=== PATIENT | male | born 1960 | race Caucasian/White ===

== ENCOUNTER 2021-07-17 16:29 | Observation (INO) ==
[2021-07-17] MEDS ORDERED: IOPAMIDOL 125 ML BOTTLE IV ONE ×2 (16:30→21:23)
[2021-07-17] MEDS ORDERED: ONDANSETRON 4 MG/2 ML VIAL IV ONE (17:29)
[2021-07-17 18:10] LABS: POC Creatinine 1.2 mg/dL (0.6-1.2)
[2021-07-17 18:14] LABS: Hematocrit 38.7 % (40.1-51.0); Hemoglobin 13.6 g/dL (13.7-17.5); Mean Cell Volume 91.3 fL (80.0-100.0); Mean Corpuscular HGB Conc 35.1 g/dL (31.0-36.0); Mean Platelet Volume 11.8 fL (7.4-10.4); Platelet Count 267 K/mcL (140-440); RBC 4.24 M/mcL (4.63-6.08); Red Cell Distribution Width 13.3 % (11.5-14.5)
--- NOTE | 2021-07-17 18:22 | Emergency Department Note ---
Abdominal Pain HPI General Chief Complaint: Abdominal Pain Stated Complaint: ABDOMINAL PAIN Time Seen by Provider: 07/17/21 17:29 Source: patient Mode of arrival: ambulatory Limitations: no limitations History of Present Illness HPI Narrative: This is a 61-year-old male who presents with right lower quadrant abdominal pain since Friday morning (3 days). He states the pain comes and goes, is worse with positional changes and walking. He's had no associated nausea and vomiting. No fevers chills or sweats. He denies right-sided flank pain, dysuria or hematuria. No previous abdominal surgeries. He is a recovering alcoholic with last alcoholic beverage was 1 month ago. Daily smoker. Patient takes apixaban and diltiazem for chronic atrial fibrillation, has a history of hypertension, and COPD on chronic inhalers. Related Data Home Medications Medication Instructions Recorded Confirmed B-complex with vitamin C 1 tab PO QDAY 07/11/20 07/17/21 albuterol sulfate 90 mcg/actuation 1 inh INHALATION Q4H 07/11/20 07/17/21 breath activated powder inhaler,sensor apixaban 5 mg tablet 5 mg PO BID 07/11/20 07/17/21 aspirin 81 mg tablet,delayed 81 mg PO QDAY 07/11/20 07/17/21 release budesonide-formoterol HFA 160 2 puff INHALATION BID 07/11/20 07/17/21 mcg-4.5 mcg/actuation aerosol inhaler bupropion HCl 150 mg tablet,12 hr 150 mg PO QDAY 07/11/20 07/17/21 sustained-release diltiazem HCl 360 mg capsule,24 360 mg PO QDAY 07/11/20 07/17/21 hr,extended release folic acid 1 mg tablet 1 mg PO QDAY 07/11/20 07/17/21 furosemide 40 mg tablet 40 mg PO QDAY 07/11/20 07/17/21 hydroxyzine pamoate 50 mg capsule 50 mg PO QHS 07/11/20 07/17/21 loratadine 10 mg capsule 10 mg PO QDAY 07/11/20 07/17/21 naloxone 4 mg/actuation nasal spray 4 mg INTRANASAL Q2M PRN 07/11/20 07/17/21 naltrexone 50 mg tablet 50 mg PO QDAY 07/11/20 07/17/21 omeprazole magnesium 20 mg 20 mg PO QDAY 07/11/20 07/17/21 capsule,delayed release rosuvastatin 10 mg tablet 10 mg PO QDAY 07/11/20 07/17/21 sildenafil 100 mg tablet 100 mg PO QDAY PRN 07/11/20 07/17/21 sodium 30 mEq-potassium 10 each PO 07/11/20 07/17/21 mEq-chloride 25 mEq-dex 11 gram powder pack thiamine HCl (vitamin B1) 100 mg 100 mg PO QDAY 07/11/20 07/17/21 tablet tiotropium bromide 2.5 2 puff INHALATION QDAY 07/11/20 07/17/21 mcg/actuation mist for inhalation tamsulosin 0.4 mg capsule 0.4 mg PO QDAY 07/17/21 07/17/21 Allergies Allergy/AdvReac Type Severity Reaction Status Date / Time lisinopril Allergy Unknown Unknown Verified 07/17/21 16:31 Review of Systems ROS ROS Narrative: Narrative: All systems ED: reviewed and negative except as stated. [facility] Narrative Patient History Narrative: Narrative: Medical/Surgical/Family History All Active Problems (Updated 07/17/21 @ 19:59 by Jaimee Kiser PA-C) Acute appendicitis (Acute) RLQ abdominal pain (Acute) Community acquired pneumonia (Acute) No pertinent past surgical history (Chronic) COPD (chronic obstructive pulmonary disease) (Chronic) Anxiety disorder (Chronic) PTSD (post-traumatic stress disorder) (Chronic) Hypertension (Chronic) Other intervertebral disc degeneration, lumbar region (Chronic) Radiculopathy, lumbar region (Chronic) Adhesive arachnoiditis (Chronic) Low back pain (Chronic) Chronic pain (Chronic) Spinal stenosis, lumbar region with neurogenic claudication (Chronic) Spondylosis without myelopathy or radiculopathy, lumbar region (Chronic) Medical History Adhesive arachnoiditis Anxiety disorder Chronic pain COPD (chronic obstructive pulmonary disease) Hypertension Low back pain Other intervertebral disc degeneration, lumbar region PTSD (post-traumatic stress disorder) Radiculopathy, lumbar region Spinal stenosis, lumbar region with neurogenic claudication Spondylosis without myelopathy or radiculopathy, lumbar region Surgical History No pertinent past surgical history Family History Other No pertinent family history Social History Smoking Status: Current every day smoker Exam Narrative Narrative: General: AOx3, NAD, nontoxic appearing. Pleasant and conversant. HEENT: PERRL, EOMI, normocephalic. Moist mucous membranes. Normal facies Respiratory: Lungs clear to auscultation bilaterally. No respiratory distress. Unlabored breathing. Heart: Regular rate and rhythm, no murmurs/clicks/rubs. Abdomen: Mild right lower quadrant tenderness with subtle McBurney sign, Non distended, normal bowel tones. No organomegaly. Extremities: Warm and well perfused. No edema. DP 2+ bilaterally. No venous stasis. Neuro: No focal deficits. Cranial nerves II-XII normal. Skin: Warm dry, no rashes or lesions, no cyanosis. Psych: Normal mood and affect Heme/Lymph: No abnormal bruising General Limitations: no limitations Course Course Course Narrative: 61-year-old male presents with 3 days of right lower quadrant pain from his primary care's office with request for CT of the abdomen to rule out appendicitis Reevaluation(s) Reevaluation #1: Obtain basic labs and CT of the abdomen pelvis with/without contrast to rule out appendicitis or kidney stone Obtain UA Obtain EKG Reevaluation #2: EKG shows right bundle branch block and no acute ST changes with borderline prolonged QTC of 483 ms CBC without leukocytosis, CMP without significant electrolyte derangement or endorgan dysfunction CT of the abdomen pelvis shows acute appendicitis without free air or fluid in the abdomen. Start Zosyn. Vital Signs Vital signs: Vital Signs Temperature 97.0 F 07/17/21 16:30 Pulse Rate 86 07/17/21 16:30 Respiratory Rate 16 07/17/21 16:30 Blood Pressure 123/72 07/17/21 16:30 Pulse Oximetry (%) 96 07/17/21 16:30 Temperature 97.0 F 07/17/21 16:30 Pulse Rate 72 07/17/21 19:53 Respiratory Rate 16 07/17/21 16:30 Blood Pressure 123/71 07/17/21 19:53 Pulse Oximetry (%) 96 07/17/21 19:53 [facility] MDM Narrative Medical decision making narrative: Acute appendicitis Chronic anticoagulation for atrial fibrillation I reached out to Dr. Velez who would like patient admitted for IV antibiotics and the plan will be for laparoscopic appendectomy tomorrow. The usual presurgical work-up has been ordered. Patient is pending admission. Hold Eliquis tonight, clear liquids and n.p.o. after midnight. Lab Data Result diagrams: 07/17/21 17:30 07/17/21 17:29 Labs: Lab Results 07/17/21 07/17/21 07/17/21 Range/Units 17:29 17:30 18:02 WBC 11.0 (4.5-11.0) K/mcL RBC 4.24 L (4.63-6.08) M/mcL Hgb 13.6 L (13.7-17.5) g/dL Hct 38.7 L (40.1-51.0) % MCV 91.3 (80.0-100.0) fL MCH 32.1 (26.0-34.0) pg MCHC 35.1 (31.0-36.0) g/dL RDW 13.3 (11.5-14.5) % Plt Count 267 (140-440) K/mcL MPV 11.8 H (7.4-10.4) fL Seg Neutrophils % 65 (38-78) % Lymphocytes % 26 (15-49) % Monocytes % (Manual) 6 (1-12) % Eosinophils % (Manual) 3 (0-7) % Platelet Estimate Normal (Normal) RBC Morphology Normal (Normal) Sodium 137 (133-145) mmol/L Potassium 3.9 (3.3-5.1) mmol/L Chloride 99 (96-108) mmol/L Carbon Dioxide 25 (22-30) mmol/L Anion Gap 13.0 (8.0-16.0) BUN 10 (8-23) mg/dL Creatinine 1.1 (0.7-1.2) mg/dL POC Creatinine 1.2 (0.6-1.2) mg/dL GFR Calculation 71 Glucose 138 H (70-105) mg/dL Calcium 9.4 (8.6-10.4) mg/dL Total Bilirubin 0.4 (0.1-1.0) mg/dL AST 23 (<40) U/L ALT 21 (<40) U/L Alkaline Phosphatase 90 (39-117) U/L Total Protein 6.7 (5.9-8.4) gm/dL Albumin 4.3 (3.2-5.2) gm/dL Globulin 2.4 (2.2-3.7) gm/dL Albumin/Globulin Ratio 1.8 (1.0-2.3) Lipase 18 (7-60) U/L Discharge Plan Patient/Caregiver Discharge Instructions Pt seen by CARD BOXER/PA only: Yes Clinical Impression: Acute appendicitis Patient Disposition: Xfer As Outpt/Obs ([facility]) Condition: Fair Follow up with: Karly Velez ARNP [Primary Care Provider] - Prescriptions: No Action albuterol sulfate 90 mcg/actuation aero powdr breath act w/sensor 1 inh INHALATION Q4H RF: 0 diltiazem HCl 360 mg capsule,extended release 24 hr 360 mg PO QDAY RF: 0 apixaban 5 mg tablet 5 mg PO BID RF: 0 aspirin [Adult Low Dose Aspirin] 81 mg tablet,delayed release (DR/EC) 81 mg PO QDAY RF: 0 budesonide-formoterol 160-4.5 mcg/actuation HFA aerosol inhaler 2 puff INHALATION BID RF: 0 bupropion HCl 150 mg tablet sustained-release 12 hr 150 mg PO QDAY RF: 0 furosemide 40 mg tablet 40 mg PO QDAY RF: 0 hydroxyzine pamoate 50 mg capsule 50 mg PO QHS RF: 0 naloxone 4 mg/actuation spray,non-aerosol 4 mg INTRANASAL Q2M PRNRF: 0 naltrexone 50 mg tablet 50 mg PO QDAY RF: 0 omeprazole magnesium [Acid Machinery Mover (omeprazole)] 20 mg capsule,delayed release(DR/EC) 20 mg PO QDAY RF: 0 nklnrg-cntya-gucmundf-dextrose 30 mEq-10 mEq- 25 mEq-11 gram powder in packet PO RF: 0 rosuvastatin 10 mg tablet 10 mg PO QDAY RF: 0 sildenafil 100 mg tablet 100 mg PO QDAY PRN (Reason: Erectile Dysfunction) RF: 0 thiamine HCl (vitamin B1) 100 mg tablet 100 mg PO QDAY RF: 0 B-complex with vitamin C Tablet 1 tab PO QDAY RF: 0 folic acid 1 mg tablet 1 mg PO QDAY RF: 0 tiotropium bromide 2.5 mcg/actuation mist 2 puff INHALATION QDAY RF: 0 loratadine 10 mg capsule 10 mg PO QDAY RF: 0 tamsulosin 0.4 mg capsule 0.4 mg PO QDAY RF: 0
[2021-07-17 18:33] LABS: ALT/SGPT 21 U/L (<40); AST/SGOT 23 U/L (<40); Albumin 4.3 gm/dL (3.2-5.2); Albumin/Globulin Ratio 1.8 (1.0-2.3); Alkaline Phosphatase 90 U/L (39-117); Bilirubin,Total 0.4 mg/dL (0.1-1.0); Blood Urea Nitrogen 10 mg/dL (8-23); Calcium 9.4 mg/dL (8.6-10.4); Carbon Dioxide 25 mmol/L (22-30); Chloride 99 mmol/L (96-108); Globulin 2.4 gm/dL (2.2-3.7); Glomerular Filtration Rate 71; Glucose 138 mg/dL (70-105)
--- NOTE | 2021-07-17 18:51 | Cat Scan Report ---
History: Right-sided abdominal pain TECHNIQUE: The abdomen was imaged before and after intravenous contrast from the diaphragm through the symphysis pubis. Sagittal and coronal reformats were created. The radiation exposure was limited using dose reduction technology. FINDINGS: The lung bases are clear. The liver is normal in size. There is a 7 mm cyst laterally in segment seven of the right lobe. The liver is otherwise homogeneous. Gallbladder is partially contracted. This may be a physiologic response to the presence of a large amount of ingested material in stomach. There are no gallstones and the bile ducts are nondilated. The spleen, pancreas and adrenals are normal. The kidneys are normal in size shape and contour. There is no kidney stone or hydronephrosis. There is a small arterial calcifications in the hilar region of the left kidney which mimics a stone. Severe atherosclerotic disease is present throughout the abdomen or pelvis. Aorta is normal in caliber. There may be a hemodynamically significant stenoses in the iliac arteries. The appendix is thickened and inflamed. Measures 1.3 cm in transverse diameter. It is oriented vertically in the right upper pelvis, posterior to the ascending colon. There is no abscess or perforation. No ascites or free intra-abdominal air present. Large and small bowel pattern are otherwise normal. The urinary bladder is normal. IMPRESSION: Acute appendicitis Jaimee Kiser was called with report Interpreted and Authenticated by: Wang Watson 07/17/21
[2021-07-17 19:01] LABS: Eosinophils % (Manual) 3 % (0-7); Lymphocytes % 26 % (15-49); Monocytes % (Manual) 6 % (1-12); Platelet Estimate NORMAL (Normal); RBC Morphology NORMAL (Normal); Segmented Neutrophils % 65 % (38-78)
[2021-07-17] MEDS ORDERED: PIPERACILLIN SODIUM/TAZOBACTAM 3.375 GM in DEXTROSE 5% IN WATER 50 ML IV ONE (19:09)
[2021-07-17] MEDS ORDERED: ONDANSETRON 4 MG/2 ML VIAL IV PRN ×2 (20:40→21:23)
[2021-07-17] MEDS ORDERED: HYDROmorphone 1 MG/ML SYRINGE IV PRN ×2 (20:40→21:23)
[2021-07-17] MEDS ORDERED: ZOLPIDEM 5 MG TABLET PO PRN ×2 (20:45→21:23)
[2021-07-17] MEDS ORDERED: 0.9 % SODIUM CHLORIDE 1,000 ML IV SCH (20:45)
[2021-07-17] MEDS ORDERED: SENNOSIDES 1 TABLET PO SCH (21:00)
[2021-07-17] MEDS ORDERED: DOCUSATE SODIUM 100 MG CAPSULE PO SCH (21:00)
[2021-07-17] MEDS ORDERED: hydrOXYzine 25 MG TABLET PO PRN ×2 (21:14→21:23)
[2021-07-17] MEDS ORDERED: MELATONIN 3 MG TABLET PO PRN ×2 (21:19→21:38)
[2021-07-17] MEDS ORDERED: HYDROXYZINE PAMOATE 50 MG PO SCH (21:23)
[2021-07-17] MEDS ORDERED: GABAPENTIN 300 MG PO SCH (21:23)
[2021-07-17 21:42] LABS: INR 1.2 (0.9-1.1); Prothrombin Time 15.4 sec (11.9-14.5)
[2021-07-17] MEDS ORDERED: ALBUTEROL SULFATE 200 PUFF INHALER INH SCH (21:45)
[2021-07-17] MEDS ORDERED: 0.9 % SODIUM CHLORIDE 10 ML SYRINGE IV SCH (22:00)
[2021-07-17 22:53] LABS: Appearance,Urine CLEAR (Clear); Bilirubin,Urine Negative (Negative); Color,Urine YELLOW; Culture Indicated,Urine No; Glucose,Urine (UA) Negative (Negative); Ketones,Urine Negative (Negative); Leukocyte Esterase,Urine Negative /uL (Negative); Nitrate,Urine Negative (Negative); Protein,Urine Negative (Negative); Specific Gravity,Urine 1.049 (1.000-1.035); Urine Blood Negative (Negative); Urine RBC < 1 /hpf (0-3); Urine Squamous Epithelial Cell 0 /hpf (0-4); Urine WBC 1 /hpf (0-4)
[2021-07-17] MEDS: 0.9 % SODIUM CHLORIDE 10 ML SYRINGE IV SCH (23:17)
[2021-07-17] MEDS: buPROPion 150 MG TAB.SR.12H PO SCH ×2 (23:17→23:20)
[2021-07-17] MEDS: 0.9 % SODIUM CHLORIDE 1,000 ML IV SCH (23:17)
[2021-07-18] MEDS: 0.9 % SODIUM CHLORIDE 10 ML SYRINGE IV SCH ×3 (04:00→21:51)
[2021-07-18 07:01] LABS: Basophils # (Auto) 0.08 K/mcL (0.00-0.30); Basophils % (Auto) 1.1 % (0.0-2.0); Eosinophils % (Auto) 5.5 % (0.0-7.0); Hematocrit 38.1 % (40.1-51.0); Lymphocytes # (Auto) 2.13 K/mcL (1.50-4.80); Lymphocytes % (Auto) 29.5 % (15.5-49.0); Mean Cell Volume 93.4 fL (80.0-100.0); Mean Corpuscular HGB Conc 34.1 g/dL (31.0-36.0); Mean Platelet Volume 12.3 fL (7.4-10.4); Monocytes # (Auto) 0.77 K/mcL (0.10-0.90); Monocytes % (Auto) 10.7 % (1.0-12.0); Neutrophils % (Auto) 53.2 % (38.0-78.0); Platelet Count 230 K/mcL (140-440); RBC 4.08 M/mcL (4.63-6.08); Red Cell Distribution Width 13.3 % (11.5-14.5); WBC 7.2 K/mcL (4.5-11.0)
[2021-07-18] MEDS: 0.9 % SODIUM CHLORIDE 1,000 ML IV SCH ×5 (07:01→22:03)
[2021-07-18] MEDS ORDERED: SCOPOLAMINE 1 PATCH PATCH TOPICAL PRN (07:25)
[2021-07-18 07:39] LABS: ALT/SGPT 19 U/L (<40); AST/SGOT 20 U/L (<40); Albumin 3.6 gm/dL (3.2-5.2); Albumin/Globulin Ratio 1.5 (1.0-2.3); Alkaline Phosphatase 80 U/L (39-117); Bilirubin,Direct < 0.2 mg/dL (0-0.3); Bilirubin,Total 0.2 mg/dL (0.1-1.0); Blood Urea Nitrogen 10 mg/dL (8-23); Carbon Dioxide 25 mmol/L (22-30); Chloride 102 mmol/L (96-108); Globulin 2.4 gm/dL (2.2-3.7); Glomerular Filtration Rate 95; Glucose 111 mg/dL (70-105); Lactate Dehydrogenase 147 U/L (135-225); Phosphorous 3.9 mg/dL (2.5-4.5); Triglycerides 59 mg/dL (<150); Uric Acid 5.4 mg/dL (2.5-8.0)
--- NOTE | 2021-07-18 07:43 | General Surg History&Physical ---
HPI History of Present Illness Patient information: Note initiated : 07/18/21 at 7:35 am Service Date, if different from initiated Date: [] Patient: Barry Jefferson 61 y/o M admitted on 07/17/21 for ABDOMINAL PAIN. Chief Complaint: [] History of present illness: Mr. Jefferson is a 61 year old M admitted with acute appendicitis. The patient had onset of aching pain in his right lower quadrant 5 days prior to admission. He had associated bloating. He did not have nausea vomiting. He states that the pain became more intense. He denied fever or chills. He finally presented to the emergency room with these complaints and was noted to have mild tenderness in his right lower quadrant. CT of the abdomen confirmed retrocecal appendicitis. Patient is admitted and will have appendectomy later today. Review of Systems All systems: reviewed and no additional remarkable complaints except as stated Respiratory Respiratory: Present dyspnea on exertion (Moderate dyspnea on exertion) Musculoskeletal Musculoskeletal: Present back pain (Chronic low back pain with sciatica) PFSH PFSH All Active Problems (Updated 07/18/21 @ 07:42 by Jacquie Velez MD) Chronic alcoholism (Acute) Acute appendicitis (Acute) RLQ abdominal pain (Acute) Community acquired pneumonia (Acute) No pertinent past surgical history (Chronic) COPD (chronic obstructive pulmonary disease) (Chronic) Anxiety disorder (Chronic) PTSD (post-traumatic stress disorder) (Chronic) Hypertension (Chronic) Other intervertebral disc degeneration, lumbar region (Chronic) Radiculopathy, lumbar region (Chronic) Adhesive arachnoiditis (Chronic) Low back pain (Chronic) Chronic pain (Chronic) Spinal stenosis, lumbar region with neurogenic claudication (Chronic) Spondylosis without myelopathy or radiculopathy, lumbar region (Chronic) Medical History Adhesive arachnoiditis Anxiety disorder Chronic pain COPD (chronic obstructive pulmonary disease) Hypertension Low back pain Other intervertebral disc degeneration, lumbar region PTSD (post-traumatic stress disorder) Radiculopathy, lumbar region Spinal stenosis, lumbar region with neurogenic claudication Spondylosis without myelopathy or radiculopathy, lumbar region Surgical History No pertinent past surgical history Family History Other No pertinent family history MEDS/ALLERGIES Home Medications and Allergies Home Medications Medication Instructions Recorded Confirmed Type B-complex with vitamin C 1 tab PO QDAY 07/11/20 07/17/21 History albuterol sulfate 90 mcg/actuation 1 inh INHALATION Q4H 07/11/20 07/17/21 History breath activated powder inhaler,sensor apixaban 5 mg tablet 5 mg PO BID 07/11/20 07/17/21 History aspirin 81 mg tablet,delayed 81 mg PO QDAY 07/11/20 07/17/21 History release budesonide-formoterol HFA 160 2 puff INHALATION BID 07/11/20 07/17/21 History mcg-4.5 mcg/actuation aerosol inhaler bupropion HCl 150 mg tablet,12 hr 150 mg PO BID 07/11/20 07/17/21 History sustained-release diltiazem HCl 360 mg capsule,24 360 mg PO QDAY 07/11/20 07/17/21 History hr,extended release folic acid 1 mg tablet 1 mg PO QDAY 07/11/20 07/17/21 History furosemide 40 mg tablet 40 mg PO QDAY 07/11/20 07/17/21 History hydroxyzine pamoate 50 mg capsule 50 mg PO TID 07/11/20 07/17/21 History loratadine 10 mg capsule 10 mg PO QDAY PRN 07/11/20 07/17/21 History naltrexone 50 mg tablet 50 mg PO QDAY 07/11/20 07/17/21 History omeprazole magnesium 20 mg 20 mg PO QDAY 07/11/20 07/17/21 History capsule,delayed release rosuvastatin 10 mg tablet 10 mg PO QDAY 07/11/20 07/17/21 History sildenafil 100 mg tablet 100 mg PO QDAY PRN 07/11/20 07/17/21 History thiamine HCl (vitamin B1) 100 mg 100 mg PO QDAY 07/11/20 07/17/21 History tablet tiotropium bromide 2.5 2 puff INHALATION QDAY 07/11/20 07/17/21 History mcg/actuation mist for inhalation gabapentin 600 mg PO TID 07/17/21 07/17/21 History melatonin 15 mg PO HS PRN 07/17/21 07/17/21 History potassium chloride 10 meq PO BID 07/17/21 07/17/21 History tamsulosin 0.4 mg capsule 0.4 mg PO QDAY 07/17/21 07/17/21 History tramadol 100 mg PO TID PRN 07/17/21 07/17/21 History Allergies Allergy/AdvReac Type Severity Reaction Status Date / Time lisinopril Allergy Unknown Unknown Verified 07/17/21 16:31 Physical Examination Vital Signs Vital signs: Temp Pulse Resp BP Pulse Ox 98.0 F 72 20 130/75 96 07/18/21 07:00 07/18/21 07:00 07/18/21 07:00 07/18/21 07:00 07/18/21 07:00 General physical appearance General physical exam: well developed, well nourished and no distress Eyes Eye exam: PERRL and normal ocular movement ENT ENT exam: normal nares, normal mucosa, no hearing loss and no congestion Head Head exam IM: Present atraumatic, normal inspection and normocephalic Neck Neck exam: no masses, no bruits, trachea midline, no lymphadenopathy and no venous distension Cardiovascular Cardiovascular exam IM: Present irregular rhythm (contrlolled rate), +S1 and +S2; Absent gallop and JVD Respiratory Respiratory exam: normal expansion, normal respiratory effort and clear to auscultation Abdomen Abdomen: Present tender (RLQ AND SUPRAPUBIC TENDERNESS), bowel sounds (present) and guarding; Absent masses and rebound Hernia: Present none Integumentary Integumentary: Present no rash, no growths, no abnormal pigmentation and other Neurologic Neurologic: Present normal coordination and normal sensation Musculoskeletal Musculoskeletal: Present normal gait and normal posture Psychiatric Psychiatric: Present oriented to time, oriented to person, oriented to place, speech is normal and memory intact Results Labs Result diagrams: 07/18/21 05:11 07/18/21 05:11 Labs: Abnormal lab results 07/17/21 07/17/21 07/17/21 Range/Units 17:29 17:30 18:02 RBC 4.24 L (4.63-6.08) M/mcL Hgb 13.6 L (13.7-17.5) g/dL Hct 38.7 L (40.1-51.0) % MPV 11.8 H (7.4-10.4) fL PT 15.4 H (11.9-14.5) sec INR 1.2 H (0.9-1.1) Glucose 138 H (70-105) mg/dL Urine Urobilinogen mg/dL 07/17/21 07/18/21 Range/Units 22:13 05:11 RBC 4.08 L (4.63-6.08) M/mcL Hgb 13.0 L (13.7-17.5) g/dL Hct 38.1 L (40.1-51.0) % MPV 12.3 H (7.4-10.4) fL PT (11.9-14.5) sec INR (0.9-1.1) Glucose (70-105) mg/dL Urine Urobilinogen 2.0 A mg/dL Diabetes panel 07/17/21 Range/Units 17:29 Sodium 137 (133-145) mmol/L Potassium 3.9 (3.3-5.1) mmol/L Chloride 99 (96-108) mmol/L Carbon Dioxide 25 (22-30) mmol/L BUN 10 (8-23) mg/dL Creatinine 1.1 (0.7-1.2) mg/dL Glucose 138 H (70-105) mg/dL Calcium 9.4 (8.6-10.4) mg/dL AST 23 (<40) U/L ALT 21 (<40) U/L Alkaline Phosphatase 90 (39-117) U/L Total Protein 6.7 (5.9-8.4) gm/dL Albumin 4.3 (3.2-5.2) gm/dL Calcium panel 07/17/21 Range/Units 17:29 Calcium 9.4 (8.6-10.4) mg/dL Albumin 4.3 (3.2-5.2) gm/dL Pituitary panel 07/17/21 Range/Units 17:29 Sodium 137 (133-145) mmol/L Potassium 3.9 (3.3-5.1) mmol/L Chloride 99 (96-108) mmol/L Carbon Dioxide 25 (22-30) mmol/L BUN 10 (8-23) mg/dL Creatinine 1.1 (0.7-1.2) mg/dL Glucose 138 H (70-105) mg/dL Calcium 9.4 (8.6-10.4) mg/dL Adrenal panel 10/12/21 Range/Units 17:29 Sodium 137 (133-145) mmol/L Potassium 3.9 (3.3-5.1) mmol/L Chloride 99 (96-108) mmol/L Carbon Dioxide 25 (22-30) mmol/L BUN 10 (8-23) mg/dL Creatinine 1.1 (0.7-1.2) mg/dL Glucose 138 H (70-105) mg/dL Calcium 9.4 (8.6-10.4) mg/dL Total Bilirubin 0.4 (0.1-1.0) mg/dL AST 23 (<40) U/L ALT 21 (<40) U/L Alkaline Phosphatase 90 (39-117) U/L Total Protein 6.7 (5.9-8.4) gm/dL Albumin 4.3 (3.2-5.2) gm/dL All other labs normal. A/P Assessment and plan (1) Acute appendicitis: Status: Acute Qualifiers: Acute appendicitis type: with localized peritonitis Appendicitis abscess presence: without abscess Appendicitis gangrene presence: without gangrene Appendicitis perforation presence: without perforation Qualified Code(s): K35.30 - Acute appendicitis with localized peritonitis, without perforation or gangrene (2) COPD (chronic obstructive pulmonary disease): Status: Chronic Qualifiers: COPD type: emphysema Emphysema type: unspecified Qualified Code(s): J43.9 - Emphysema, unspecified (3) PTSD (post-traumatic stress disorder): Status: Chronic (4) Hypertension: Status: Chronic Qualifiers: Hypertension type: primary hypertension Qualified Code(s): I10 - Essential (primary) hypertension (5) Low back pain: Status: Chronic Qualifiers: Back pain laterality: bilateral Chronicity: chronic Sciatica presence: without sciatica Qualified Code(s): M54.50 - Low back pain, unspecified; G89.29 - Other chronic pain (6) Chronic alcoholism: Status: Acute Narrative A/P Narrative: PATIENT IS COUNSELED FOR LAPAROSCOPIC APPENDECTOMY ELIQUIS IS TO BE WITHHELD X 2 DAYS Time Spent With Patient Time: Total time spent is greater than 50% in coordination of care (as documented) at patient's floor/unit and/or counseling patient:
[2021-07-18] MEDS: buPROPion 150 MG TAB.SR.12H PO SCH ×2 (08:54→21:06)
[2021-07-18] MEDS ORDERED: GABAPENTIN 300 MG CAPSULE PO SCH ×2 (09:00)
[2021-07-18] MEDS ORDERED: DOCUSATE SODIUM 100 MG CAPSULE PO SCH (09:00)
[2021-07-18] MEDS ORDERED: TAMSULOSIN 0.4 MG CAPSULE PO SCH (09:00)
[2021-07-18] MEDS ORDERED: DILTIAZEM 180 MG CAP.XL.24H PO SCH (09:00)
[2021-07-18] MEDS ORDERED: ACTUATION MIST INH SCH (09:00)
[2021-07-18] MEDS ORDERED: buPROPion 150 MG TAB.SR.12H PO SCH ×2 (09:00)
[2021-07-18] MEDS ORDERED: TIOTROPIUM BROMIDE INH SCH (09:00)
[2021-07-18] MEDS ORDERED: Budesonide-Formoterol 160-4.5 mcg/actuation HFA INH SCH (09:00)
[2021-07-18] MEDS ORDERED: NICOTINE 21 MG PATCH TOPICAL SCH ×2 (10:00)
[2021-07-18] MEDS ORDERED: PIPERACILLIN SODIUM/TAZOBACTAM 3.375 GM in DEXTROSE 5% IN WATER 50 ML IV SCH (10:00)
[2021-07-18] MEDS ORDERED: LACTATED RINGERS 1,000 ML IV SCH ×3 (10:30→12:39)
[2021-07-18] MEDS ORDERED: MAGNESIUM SULFATE 4 GM/100 ML BAG IV ONE (10:55)
[2021-07-18] MEDS ORDERED: LIDOCAINE HCL/PF 100 MG/5 ML SYRINGE IV ONE (10:55)
[2021-07-18] MEDS ORDERED: ROCURONIUM 10 MG/ML ML IV ONE (10:55)
[2021-07-18] MEDS ORDERED: PROPOFOL 200 MG/20 ML VIAL IV ONE (10:55)
[2021-07-18] MEDS ORDERED: SUGAMMADEX SODIUM 200 MG/2 ML VIAL IV ONE (10:55)
[2021-07-18] MEDS ORDERED: fentaNYL 250 MCG/5 ML VIAL IV ONE (10:55)
[2021-07-18] MEDS ORDERED: ONDANSETRON 4 MG/2 ML VIAL ONE (10:55)
[2021-07-18] MEDS ORDERED: HYDROmorphone* 2 MG/ML VIAL ONE (10:55)
[2021-07-18] MEDS ORDERED: KETAMINE 50 MG/ML Syringe (ANEST) IV ONE (10:55)
[2021-07-18] MEDS ORDERED: ACETAMINOPHEN 1,000 MG/100 ML BAG IV ONE (11:34)
[2021-07-18] MEDS ORDERED: MEPERIDINE 50 MG/ML VIAL IM PRN (11:34)
[2021-07-18] MEDS ORDERED: LACTATED RINGERS 250 ML IV PRN (11:34)
[2021-07-18] MEDS ORDERED: MEPERIDINE 25 MG/ML VIAL IV PRN (11:34)
[2021-07-18] MEDS ORDERED: PROMETHAZINE 25 MG/ML VIAL IV PRN (11:34)
[2021-07-18] MEDS ORDERED: diphenhydrAMINE 50 MG/ML VIAL IV PRN (11:34)
[2021-07-18] MEDS ORDERED: ONDANSETRON 4 MG/2 ML VIAL IV PRN ×2 (11:34→12:39)
[2021-07-18] MEDS ORDERED: fentaNYL 100 MCG/2 ML VIAL IV PRN (11:34)
[2021-07-18] MEDS ORDERED: IPRATROPIUM/ALBUTEROL 3 ML AMPUL.NEB NEB PRN (11:34)
[2021-07-18] MEDS ORDERED: NALOXONE HCL 0.4 MG/ML VIAL IV PRN (11:34)
[2021-07-18] MEDS ORDERED: PROMETHAZINE 25 MG/ML VIAL IM PRN (11:34)
--- NOTE | 2021-07-18 11:52 | Brief Operative Note ---
Brief Operative Note Date of procedure: 07/18/21 Pre-op diagnosis: ACUTE APPENDICITIS Post-op diagnosis: other (ACUTE APPENDICITIS) Procedure: LAPAROSCOPIC APENDECTOMY Grafts/Implants: No Anesthesia: GETA Findings: ACUTE SUPPURATIVE APPENDICITIS Complications: none Surgeon: Jacquie Velez Estimated blood loss (cc): 10 Specimens Removed/Pathology: other (APPENDIX) Condition: stable Disposition: PACU
[2021-07-18] MEDS ORDERED: ALBUTEROL SULFATE 200 PUFF INHALER INH SCH (12:39)
[2021-07-18] MEDS ORDERED: hydrOXYzine 25 MG TABLET PO PRN (12:39)
[2021-07-18] MEDS ORDERED: HYDROmorphone 1 MG/ML SYRINGE IV PRN (12:39)
[2021-07-18] MEDS: PIPERACILLIN SODIUM/TAZOBACTAM 3.375 GM in DEXTROSE 5% IN WATER 50 ML IV SCH ×2 (14:29→18:16)
[2021-07-18] MEDS: GABAPENTIN 300 MG CAPSULE PO SCH ×2 (14:32→21:06)
[2021-07-18] MEDS ORDERED: hydrOXYzine 25 MG TABLET PO ONE (16:36)
[2021-07-18] MEDS ORDERED: LORazepam 2 MG/ML VIAL IV ONE (16:36)
--- NOTE | 2021-07-18 16:56 | EKG ---
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
[2021-07-18] MEDS ORDERED: MELATONIN 3 MG TABLET PO PRN (21:00)
[2021-07-18] MEDS ORDERED: ZOLPIDEM 5 MG TABLET PO PRN (21:00)
[2021-07-18] MEDS: DOCUSATE SODIUM 100 MG CAPSULE PO SCH (21:50)
[2021-07-19] MEDS: PIPERACILLIN SODIUM/TAZOBACTAM 3.375 GM in DEXTROSE 5% IN WATER 50 ML IV SCH ×2 (00:16→06:31)
[2021-07-19] MEDS: 0.9 % SODIUM CHLORIDE 10 ML SYRINGE IV SCH (05:12)
[2021-07-19] MEDS: 0.9 % SODIUM CHLORIDE 1,000 ML IV SCH (05:12)
[2021-07-19 06:56] LABS: Basophils # (Auto) 0.01 K/mcL (0.00-0.30); Basophils % (Auto) 0.1 % (0.0-2.0); Eosinophils # (Auto) 0 K/mcL (0.00-0.70); Eosinophils % (Auto) 0 % (0.0-7.0); Hematocrit 40.5 % (40.1-51.0); Hemoglobin 13.3 g/dL (13.7-17.5); Lymphocytes # (Auto) 1.07 K/mcL (1.50-4.80); Lymphocytes % (Auto) 8.7 % (15.5-49.0); Mean Cell Volume 95.3 fL (80.0-100.0); Mean Corpuscular HGB Conc 32.8 g/dL (31.0-36.0); Mean Platelet Volume 12.1 fL (7.4-10.4); Monocytes # (Auto) 0.38 K/mcL (0.10-0.90); Monocytes % (Auto) 3.1 % (1.0-12.0); Neutrophils % (Auto) 88.1 % (38.0-78.0); Platelet Count 251 K/mcL (140-440); RBC 4.25 M/mcL (4.63-6.08); Red Cell Distribution Width 13.3 % (11.5-14.5); WBC 12.4 K/mcL (4.5-11.0)
[2021-07-19 07:24] LABS: ALT/SGPT 20 U/L (<40); AST/SGOT 22 U/L (<40); Albumin 3.7 gm/dL (3.2-5.2); Albumin/Globulin Ratio 1.5 (1.0-2.3); Alkaline Phosphatase 78 U/L (39-117); Bilirubin,Direct < 0.2 mg/dL (0-0.3); Bilirubin,Total 0.2 mg/dL (0.1-1.0); Blood Urea Nitrogen 10 mg/dL (8-23); Calcium 9.1 mg/dL (8.6-10.4); Carbon Dioxide 24 mmol/L (22-30); Chloride 106 mmol/L (96-108); Globulin 2.5 gm/dL (2.2-3.7); Glomerular Filtration Rate 95; Glucose 179 mg/dL (70-105); Lactate Dehydrogenase 148 U/L (135-225); Phosphorous 2.4 mg/dL (2.5-4.5); Triglycerides 52 mg/dL (<150); Uric Acid 2.5 mg/dL (2.5-8.0)
[2021-07-19] MEDS: GABAPENTIN 300 MG CAPSULE PO SCH (08:51)
[2021-07-19] MEDS: DOCUSATE SODIUM 100 MG CAPSULE PO SCH (08:53)
[2021-07-19] MEDS ORDERED: TAMSULOSIN 0.4 MG CAPSULE PO SCH (09:00)
[2021-07-19] MEDS: buPROPion 150 MG TAB.SR.12H PO SCH (09:00)
[2021-07-19] MEDS ORDERED: Tiotropium Bromide 2.5 mcg/actuation mist INH SCH (09:00)
[2021-07-19] MEDS ORDERED: DILTIAZEM 180 MG CAP.XL.24H PO SCH (09:00)
[2021-07-19] MEDS ORDERED: NICOTINE 21 MG PATCH TOPICAL SCH (10:00)
--- NOTE | 2021-07-19 11:33 | Surgical Pathology Report ---
Histology Microscopic Diagnosis Specimen A- APPENDIX, APPENDECTOMY: --- ACUTE APPENDICITIS WITH SEROSITIS. (DMT) Procedural Impression Acute appendicitis. Gross Description Received in formalin labeled with the patient information and designated appendix, is a 6.8 cm in length by up to 0.2 cm pink-tolbert appendix with up to 0.7 cm of attached yellow tolbert adipose tissue. The proximal margin is closed with a staple line. Dry Cans Back Tender portions submitted in one cassette with the proximal margin inked black. (KGW:adj) Electronically Signed Guille Garcia MD, FCAP Electronically Signed 07/19/2021 11:32
--- NOTE | 2021-07-19 11:52 | Discharge Summary ---
Discharge Provider Provider Patient information: Note initiated : 07/19/21 at 11:44 am Service Date, if different from initiated Date: [] Patient: Barry Jefferson 61 y/o M admitted on 07/17/21 for ABDOMINAL PAIN. Chief Complaint: [] Date of admission: 07/17/21 21:22 Discharge date: 07/19/21 Primary care physician: Karly Velez Admitting clinician: Jacquie Velez Attending physician on admission: Jacquie Velez Consults: 07/17/21 Consult to Physician [CONS] Stat Comment: Consulting Provider: Jacquie Velez Reason For Exam: Physician to Consult Attending physician on discharge: Jacquie Velez Discharging clinician: Jacquie Velez COURSE Hospital Course Hospital course: 61-year-old male who was admitted on 17 July with a history of recurrent right lower quadrant pain. He was evaluated in the emergency room and was found to have acute appendicitis. He had laparoscopic appendectomy on yesterday and has done well. He is on apixaban however his hemoglobin remained stable at 13.3. White blood count is 12.4. He is clinically stable and will be discharged home Discharge diagnosis: . Acute appendicitis Secondary discharge diagnosis: Chronic alcoholism Chronic obstructive lung disease Posttraumatic stress disorder Hypertension Reason for admission: Acute appendicitis Procedures: Laparoscopic appendectomy 18 July 2021 Pertinent studies/significant findings: CT of abdomen and pelvis with IV contrast Complications: None Time Spent with Patient Time attestation: Total time spent providing and/or coordinating discharge services: Physical Examination Vital Signs Vital signs: Temp Pulse Resp BP Pulse Ox 97.6 F 77 17 136/77 95 07/19/21 08:00 07/19/21 08:00 07/19/21 08:00 07/19/21 08:00 07/19/21 08:00 General physical appearance General physical exam: well developed, well nourished, no distress and moderate pain Eyes Eye exam: PERRL and normal ocular movement ENT ENT exam: normal pinna, normal nares, normal mucosa, no hearing loss and no congestion Head Head exam IM: Present atraumatic, normal inspection and normocephalic Neck Neck exam: no masses, no bruits, trachea midline, no lymphadenopathy and no venous distension Cardiovascular Cardiovascular exam IM: Present irregular rhythm (contrlolled rate), +S1 and +S2; Absent gallop and JVD Respiratory Respiratory exam: normal expansion, normal respiratory effort and clear to auscultation Abdomen Abdomen: Present soft, tender (Mild tenderness around port sites), bowel sounds and wound (Port sites are unremarkable) Integumentary Integumentary: Present no rash, no growths and no abnormal pigmentation Neurologic Neurologic: Present normal coordination and normal sensation Musculoskeletal Musculoskeletal: Present normal gait and normal posture Psychiatric Psychiatric: Present oriented to time, oriented to person, oriented to place, speech is normal and memory intact Discharge Plan Patient/Caregiver Discharge Instructions Activity: increase activity as tolerated Diet: Regular Diet Prescriptions: New levofloxacin [levofloxacin] 750 MG tablet 750 mg PO DAILY Qty: 10 RF: 0 Continued albuterol sulfate 90 mcg/actuation aero powdr breath act w/sensor 1 inh INHALATION Q4H RF: 0 diltiazem HCl 360 mg capsule,extended release 24 hr 360 mg PO QDAY RF: 0 apixaban 5 mg tablet 5 mg PO BID RF: 0 aspirin [Adult Low Dose Aspirin] 81 mg tablet,delayed release (DR/EC) 81 mg PO QDAY RF: 0 budesonide-formoterol 160-4.5 mcg/actuation HFA aerosol inhaler 2 puff INHALATION BID RF: 0 bupropion HCl 150 mg tablet sustained-release 12 hr 150 mg PO BID RF: 0 furosemide 40 mg tablet 40 mg PO QDAY RF: 0 hydroxyzine pamoate 50 mg capsule 50 mg PO TID RF: 0 naltrexone 50 mg tablet 50 mg PO QDAY RF: 0 omeprazole magnesium [Acid Advertiser (omeprazole)] 20 mg capsule,delayed release(DR/EC) 20 mg PO QDAY RF: 0 rosuvastatin 10 mg tablet 10 mg PO QDAY RF: 0 sildenafil 100 mg tablet 100 mg PO QDAY PRN (Reason: Erectile Dysfunction) RF: 0 thiamine HCl (vitamin B1) 100 mg tablet 100 mg PO QDAY RF: 0 B-complex with vitamin C Tablet 1 tab PO QDAY RF: 0 folic acid 1 mg tablet 1 mg PO QDAY RF: 0 tiotropium bromide 2.5 mcg/actuation mist 2 puff INHALATION QDAY RF: 0 loratadine 10 mg capsule 10 mg PO QDAY PRN (Reason: allergies) RF: 0 tamsulosin 0.4 mg capsule 0.4 mg PO QDAY RF: 0 potassium chloride 10 mEq Tablet Extended Release 10 meq PO BID RF: 0 tramadol 50 mg Tablet 100 mg PO TID PRN (Reason: Pain) RF: 0 gabapentin 300 mg Tablet 600 mg PO TID RF: 0 melatonin 5 mg Tablet 15 mg PO HS PRN (Reason: Insomnia) RF: 0 Follow Up Plan Prognosis: Fair Rehab Potential: Good I certify that the patient requires SNF services: No Overall status at discharge: patient is progressing back to baseline Discharge Orders: Discharge Order (Routine); Ordered 07/19/21 Ordered By: Jacquie Velez Pending Pending Pending: Resuscitation Status Resuscitate (Full Code) Diet Regular Diet Start FriJul 18 1239 Bupropion HCl (Bupropion 150 Mg Tab.Sr.12h) 150 mg PO BID [facility] Last Admin: 07/19/21 09:00 Dose: 150 mg Documented by: Admin: 07/18/21 21:06 Dose: 150 mg Documented by: BRITTANY Diltiazem HCl (Diltiazem 180 Mg Cap.Xl.24h) 360 mg PO QDAY [facility] Last Admin: 07/19/21 08:52 Dose: 360 mg Documented by: ZACKARY Docusate Sodium (Docusate Sodium 100 Mg Capsule) 100 mg PO BID [facility] Last Admin: 07/19/21 08:53 Dose: 100 mg Documented by: Admin: 07/18/21 21:50 Dose: Not Given Documented by: BRITTANY Gabapentin (Gabapentin 300 Mg Capsule) 600 mg PO TID [facility] Last Admin: 07/19/21 08:51 Dose: 600 mg Documented by: Admin: 07/18/21 21:06 Dose: 600 mg Documented by: Admin: 07/18/21 14:32 Dose: Not Given Documented by: [email or web address] Hydromorphone HCl (Hydromorphone 1 Mg/Ml Syringe) 1 mg IV Q2HP PRN; Protocol PRN Reason: Per Pain Protocol Last Admin: 07/19/21 00:44 Dose: 1 mg Documented by: BRITTANY Sodium Chloride (Sodium Chloride 0.9%) 1,000 mls @ 125 mls/hr IV .Q8H [facility] Last Admin: 07/19/21 05:12 Dose: Not Given Documented by: Admin: 07/18/21 22:03 Dose: 125 mls/hr Documented by: Admin: 07/18/21 21:50 Dose: Not Given Documented by: Infusion: 07/18/21 20:45 Dose: 125 mls/hr Documented by: Admin: 07/18/21 12:45 Dose: 125 mls/hr Documented by: POLLO Lactated Ringer's (Lactated Ringers) 1,000 mls @ 20 mls/hr IV .Q24H [facility] Last Admin: 07/18/21 12:42 Dose: Not Given Documented by: POLLO Piperacillin Sod/Tazobactam (Sod 3.375 gm/ Dextrose) 50 mls @ 100 mls/hr IV Q6H [facility]; Protocol Last Infusion: 07/19/21 09:02 Dose: 100 mls/hr Documented by: Admin: 07/19/21 06:31 Dose: 100 mls/hr Documented by: Infusion: 07/19/21 00:46 Dose: 100 mls/hr Documented by: Admin: 07/19/21 00:16 Dose: 100 mls/hr Documented by: Infusion: 07/18/21 18:46 Dose: 0 mls/hr Documented by: Admin: 07/18/21 18:16 Dose: 100 mls/hr Documented by: Infusion: 07/18/21 15:00 Dose: 0 mls/hr Documented by: Admin: 07/18/21 14:29 Dose: 100 mls/hr Documented by: POLLO Budesonide- Formoterol 160-4.5 Mcg/Actuation Hfa Inhaler 2 dose INH BID [facility] Last Admin: 07/19/21 08:54 Dose: Not Given Documented by: Admin: 07/18/21 21:50 Dose: Not Given Documented by: BRITTANY Tiotropium [place] 2 .5 Mcg/Actuation Mist 2 dose INH QDAY [facility] Last Admin: 07/19/21 09:02 Dose: Not Given Documented by: ZACKARY Sodium Chloride (0.9 % Sodium Chloride 10 Ml Syringe) 10 ml IV Q8 [facility] Last Admin: 07/19/21 05:12 Dose: Not Given Documented by: Admin: 07/18/21 21:51 Dose: Not Given Documented by: Admin: 07/18/21 14:29 Dose: Not Given Documented by: [email or web address] Tamsulosin HCl (Tamsulosin 0.4 Mg Capsule) 0.4 mg PO QDAY [facility] Last Admin: 07/19/21 09:00 Dose: 0.4 mg Documented by: [email or web address] Shift Summary 07/19/21 04:34 Shift Summary by Onofre Wu Pt A/Ox3-4. OBS status. Admitted 07/17 for appendicitis...lap appy yesterday. x3 abdominal incisions w/ covered in gauze and tegaderm w/ slight serosanguineous drainage. C/o chronic back elsy...1mg Dilaudid administered. Hx of ETOH abuse, PTSD, COPD, A-Fib, QDay smoker. Pt threatened to leave AMA yesterday d/t wanting to smoke. Pt eventually decided to stay after speaking with Dr Velez. IV LFA running NS @125ml/hr. Will update @ bedside. Initialized on 07/19/21 04:34 - END OF NOTE
[2021-07-19] MEDS ORDERED: oxyCODONE/APAP 10/325MG TABLET PO ONE (13:02)
--- NOTE | 2021-07-20 14:22 | Operative Note ---
DATE OF OPERATION: 07/18/2021 PREOPERATIVE DIAGNOSIS: Acute appendicitis. POSTOPERATIVE DIAGNOSIS: Acute appendicitis. PROCEDURE: Laparoscopic appendectomy. SURGEON: Jacquie Velez M.D. FINDINGS: Acute suppurative appendicitis. DESCRIPTION OF PROCEDURE: Under general anesthesia, the patient's abdomen was prepped and draped in a sterile field. Supraumbilical incision was made. Veress needle was inserted uneventfully. Abdomen was insufflated with 2.5 liters of CO2. A 12 mm port was placed. Laparoscope was placed. Under videoscopic guidance, a suprapubic midline and incision was made and a 5 mm port was placed. A 12 mm port was placed in the left lower quadrant. The patient was placed in deep Trendelenburg position and rotated to the left. The appendix was found at the base of the cecum. The distal two-thirds was inflamed and engorged. It was grasped with a self-retaining grasper and a window was made at the base of the appendix using the tissue dissector. The base was then transected using an Endo BRIONNA stapler. The mesoappendix was transected using the Endo BRIONNA stapler. The appendix was placed in an Endopouch and retrieved. Irrigation was carried out. Because the patient was on apixaban, all potential sites for oozing were controlled with electrocautery. Irrigation was carried out until the fluid was totally clear. CO2 was allowed to escape from the abdomen and the ports were removed. The fascia at the umbilicus was closed with 0 Vicryl. Skin incisions were closed with leda. The patient tolerated the procedure well. Tegaderm dressings were placed. He was awakened, transferred to a bed, and taken to the postoperative care unit in satisfactory condition. LCS:brian Job ID: [id number] Doc ID: [id number] Jacquie Velez M.D.
== END 2021-07-19 13:30 | disposition home or self-care (01) ==
LOC: ED 16:29 → MEDSUR 16:29
PROVIDERS: ADMIT Family Medicine Adult Medicine; ATTEND Family Medicine Adult Medicine